=== PATIENT | female | born 1975 | race Caucasian/White ===

== ENCOUNTER 2024-03-18 21:15 | Emergency (ER) | payer BC, SELFPAY ==
[2024-03-18 21:19] VITALS: BP 114/72
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
[2024-03-18] MEDS: NORCO 5/325 1 TABLET PO (22:48)
[2024-03-18] MEDS: TORADOL 60 MG IM (22:49)
== END 2024-03-18 23:04 | disposition home or self-care (01) ==
LOC: EMR 21:15
PROVIDERS: EMERGENCY PHYSICIAN Emergency Medicine; FAMILY PHYSICIAN Family Medicine
DX: T25.022A Burn of unspecified degree of left foot, initial encounter (principal); T25.221A Burn of second degree of right foot, initial encounter; X11.8XXA Contact with other hot tap-water, initial encounter; K21.9 Gastro-esophageal reflux disease without esophagitis; J45.909 Unspecified asthma, uncomplicated; Z87.19 Personal history of other diseases of the digestive system
CPT/HCPCS: 99282; 96372